=== PATIENT | female | born 1950 | race African-American/Black ===

== ENCOUNTER 2017-03-24 23:47 | Emergency (ER) | payer OTHER ==
[2017-03-25 00:33] LABS: #Basophils 0.1 thou/uL (0.0-0.2); #Eosinphils 0.6 thou/uL (0.0-0.7); #Lymphocytes 4.7 thou/uL (1.20-3.40); #Monocytes 0.9 thou/uL (0.11-0.59); #Neutrophils 4.1 thou/uL (1.40-6.50); %Basophils 0.9 % (0.0-1.0); %Eosinophils 5.5 % (0.0-10.0); %Lymphocytes 45.4 % (21.0-51.0); %Monocytes 8.6 % (0.0-10.0); Hematocrit 32.5 % (36.0-47.0); Mean Platelet Volume 7.4 fL (7.4-10.4); Red Blood Cell (RBC) Count 3.11 mill/uL (4.20-5.40); White Blood Cell (WBC) Count 10.4 thou/uL (4.8-10.8)
[2017-03-25] MEDS ORDERED: Magnesium Sulfate 2 GM/100 ML BAG ONE (00:53)
[2017-03-25] MEDS ORDERED: Acetaminophen 325 MG TAB ONE (00:53)
[2017-03-25 00:54] LABS: ALT (SGPT) 19 U/L (8-55); AST (SGOT) 18 U/L (5-34); Alkaline Phosphatase 68 U/L (40-150); Anion Gap 10 mmol/L (10-20); BUN (Urea Nitrogen) 29 mg/dL (9.8-20.1); Bilirubin, Total 0.3 mg/dL (0.2-1.2); CK (CPK) 260 U/L (29-168); Calc. Creatinine Clearance 0 mL/min (70-130); Calcium 9.5 mg/dL (7.8-10.44); Carbon Dioxide 24 mmol/L (23-31); Chloride 109 mmol/L (98-107); Estimated GFR-MDRD 60; Globulin 3.6 g/dL (2.4-3.5); Protein, Total 7.3 g/dL (6.0-8.3)
[2017-03-25 00:57] LABS: Troponin I Less than 0.010 ng/mL (< 0.028)
--- NOTE | 2017-03-25 08:32 | RAD ---
TWO VIEWS OF THE CHEST: COMPARISON: 08/04/16. HISTORY: Shortness of breath for a few days with low-grade fever. FINDINGS: Two views of the chest show normal sized cardiomediastinal silhouette. There is no evidence of conso lidation, mass, or pleural effusion. The bones are unremarkable. IMPRESSION: No evidence of acute cardiopulmonary disease. POS: [facility]
== END 2017-03-25 02:50 | disposition home or self-care (01) ==
LOC: ERS 23:47
DX: J45.901 Unspecified asthma with (acute) exacerbation (principal); F41.9 Anxiety disorder, unspecified; I25.10 Atherosclerotic heart disease of native coronary artery without angina pectoris; E11.9 Type 2 diabetes mellitus without complications; I10 Essential (primary) hypertension; F32.9 Major depressive disorder, single episode, unspecified; Z79.4 Long term (current) use of insulin; Z79.899 Other long term (current) drug therapy
CPT/HCPCS: 36415; 36416; 71020; 80053; 82550; 82553; 84484; 85025; 93005; 96365; J3475

== ENCOUNTER 2017-05-01 13:27 | Emergency (ER) | payer MEDICARE, OTHER ==
--- NOTE | 2017-05-01 14:48 | RAD ---
EXAM: ONE VIEW CHEST HISTORY: Shortness of breath. Epigastric pain. COMPARISON: 08/04/2016, 03/25/2017. FINDINGS: Portable upright chest demonstrates an enlarged cardiac silhouette, due to technique. Pulmonary vess els and hilum are normal. Costophrenic angles are clear. Persistent elevation of the right hemidiap hragm. No mass or consolidation. No pneumothorax or osseous abnormalities. IMPRESSION: No acute cardiopulmonary process. POS: [facility]
[2017-05-01 15:13] LABS: #Eosinphils 0.6 thou/uL (0.0-0.7); #Lymphocytes 2.8 thou/uL (1.20-3.40); #Monocytes 0.8 thou/uL (0.11-0.59); #Neutrophils 4.1 thou/uL (1.40-6.50); %Basophils 0.2 % (0.0-1.0); %Lymphocytes 33.3 % (21.0-51.0); %Monocytes 9.6 % (0.0-10.0); Hematocrit 35.1 % (36.0-47.0); Mean Platelet Volume 7.4 fL (7.4-10.4); Red Blood Cell (RBC) Count 3.37 mill/uL (4.20-5.40); White Blood Cell (WBC) Count 8.3 thou/uL (4.8-10.8)
[2017-05-01 15:37] LABS: ALT (SGPT) 17 U/L (8-55); AST (SGOT) 19 U/L (5-34); Alkaline Phosphatase 72 U/L (40-150); Anion Gap 13 mmol/L (10-20); BUN (Urea Nitrogen) 32 mg/dL (9.8-20.1); Bilirubin, Total 0.3 mg/dL (0.2-1.2); Calc. Creatinine Clearance 0 mL/min (70-130); Calcium 9.8 mg/dL (7.8-10.44); Carbon Dioxide 24 mmol/L (23-31); Chloride 105 mmol/L (98-107); Estimated GFR-MDRD 64; Globulin 3.8 g/dL (2.4-3.5); Protein, Total 7.7 g/dL (6.0-8.3)
[2017-05-01 15:41] LABS: Troponin I Less than 0.010 ng/mL (< 0.028)
[2017-05-01] MEDS ORDERED: methylPREDNISolone Sod Succ/PF 125 MG/2 ML VIAL ONE (16:08)
[2017-05-01] MEDS ORDERED: ISOVUE-370 76%-LOCM 1 ML ONE (17:08)
--- NOTE | 2017-05-01 18:23 | CT ---
CT PULMONARY ANGIOGRAM WITH IV CONTRAST AND 3D MIP RECONSTRUCTIONS: Date: 05/01/17 PROVIDED CLINICAL HISTORY: Shortness of breath. FINDINGS: Comparison with 07/27/14. There is no evidence for central or segmental pulmonary embolus. The heart, pericardium, and great ve ssels demonstrate an unremarkable CT appearance, with the exception of vascular calcification includi ng coronary calcium. The lungs are free of significant opacity. No pleural fluid or pneumothorax is apparent. No evidence for thoracic lymph node enlargement. The visualized portions of the upper abdomen demonstrate no acute abnormality. The osseous structures demonstrate no concerning osteoblastic or osteolytic lesions. IMPRESSION: 1. No evidence for central or segmental pulmonary embolus. 2. Coronary artery calcium. POS: [facility]
--- NOTE | 2017-05-27 20:53 | EKG ---
Test Reason : Blood Pressure : / mmHG Vent. Rate : 080 BPM Atrial Rate : 080 BPM P-R Int : 140 ms QRS Dur : 080 ms QT Int : 390 ms P-R-T Axes : 081 059 071 degrees QTc Int : 449 ms Normal sinus rhythm Normal ECG Confirmed by WILLIAM GURROLA, ALINA ([id number]), story editor PANFILO LUDWIG ([id number]) on 05/27/2017 8:52:25 PM Referred By: Confirmed By:ALINA THOMAS MD
== END 2017-05-01 18:38 | disposition home or self-care (01) ==
LOC: ERS 13:27
DX: J45.901 Unspecified asthma with (acute) exacerbation (principal); I25.10 Atherosclerotic heart disease of native coronary artery without angina pectoris; E11.9 Type 2 diabetes mellitus without complications; I11.0 Hypertensive heart disease with heart failure; I50.9 Heart failure, unspecified; F32.9 Major depressive disorder, single episode, unspecified; Z79.899 Other long term (current) drug therapy; Z79.84 Long term (current) use of oral hypoglycemic drugs
CPT/HCPCS: 36415; 36416; 71010; 71275; 80053; 82553; 84484; 85025; 85379; 93005; 94640; 96374; J2930; J7620

== ENCOUNTER 2017-05-21 14:17 | Emergency (ER) | payer MEDICARE, MEDICAID ==
--- NOTE | 2017-05-21 16:37 | RAD ---
CHEST ONE VIEW: History: Respiratory symptoms, cough. Comparison: 05-01-17 FINDINGS: Lungs are clear. No pneumothorax or effusion. Cardiac silhouette and mediastinal contours are normal. IMPRESSION: No acute thoracic abnormality. POS: [facility]
[2017-05-21] MEDS ORDERED: Albuterol Sulfate 2.5 mg/3 ml Neb ONE (16:42)
[2017-05-21] MEDS ORDERED: Lidocaine Viscous Sol 2% 15 ml UD Cup ONE (17:16)
[2017-05-21] MEDS ORDERED: Mag-Al 1200 mg/1200 mg/30 ML UDCUP ONE (17:16)
== END 2017-05-21 17:35 | disposition home or self-care (01) ==
LOC: ERS 14:17
DX: J45.901 Unspecified asthma with (acute) exacerbation (principal); E11.9 Type 2 diabetes mellitus without complications; I10 Essential (primary) hypertension; F32.9 Major depressive disorder, single episode, unspecified; F41.9 Anxiety disorder, unspecified; I25.10 Atherosclerotic heart disease of native coronary artery without angina pectoris; Z79.4 Long term (current) use of insulin; Z79.899 Other long term (current) drug therapy
CPT/HCPCS: 71045; 87081; 87430; 94640; J7611; J7620

== ENCOUNTER 2018-08-06 01:49 | Inpatient (IN) | payer MEDICARE, MEDICAID ==
[2018-08-06 02:28] LABS: #Basophils 0.1 thou/uL (0.0-0.2); #Eosinphils 0.4 thou/uL (0.0-0.7); #Lymphocytes 5.2 thou/uL (1.20-3.40); #Monocytes 1.5 thou/uL (0.11-0.59); #Neutrophils 5.3 thou/uL (1.40-6.50); %Basophils 0.9 % (0.0-1.0); %Eosinophils 2.9 % (0.0-10.0); %Lymphocytes 41.8 % (21.0-51.0); %Monocytes 12.2 % (0.0-10.0); %Neutrophils 42.3 % (42.0-75.0); Hemoglobin 10.7 g/dL (12.0-16.0); Mean Corpuscular HGB CONC 31.2 g/dL (32.0-36.0); Mean Corpuscular Hemoglobin 32.5 pg (27.0-31.0); Mean Platelet Volume 7.7 fL (7.4-10.4); Platelet Count 261 thou/uL (130-400); RBC Distribution Width 11.3 % (11.5-14.5); Red Blood Cell (RBC) Count 3.28 mill/uL (4.20-5.40); White Blood Cell (WBC) Count 12.5 thou/uL (4.8-10.8)
[2018-08-06 02:49] LABS: ALT (SGPT) 17 U/L (8-55); AST (SGOT) 19 U/L (5-34); Albumin 3.9 g/dL (3.4-4.8); Alkaline Phosphatase 72 U/L (40-150); Anion Gap 15 mmol/L (10-20); BUN (Urea Nitrogen) 18 mg/dL (9.8-20.1); Bilirubin, Total 0.3 mg/dL (0.2-1.2); Calc. Creatinine Clearance 0 mL/min (70-130); Calcium 9.3 mg/dL (7.8-10.44); Carbon Dioxide 23 mmol/L (23-31); Chloride 104 mmol/L (98-107); Estimated GFR-MDRD 52; Globulin 3.9 g/dL (2.4-3.5); Glucose 197 mg/dL (80-115); Protein, Total 7.8 g/dL (6.0-8.3); Sodium 137 mmol/L (136-145)
[2018-08-06] MEDS ORDERED: Magnesium 2 GM/50 ML BAG (IN WATER) ONE (03:08)
[2018-08-06] MEDS ORDERED: Albuterol Sulfate 2.5 mg/3 ml Neb ONE (03:10)
[2018-08-06 06:14] LABS: Troponin I Less than 0.010 ng/mL (< 0.028)
[2018-08-06] MEDS ORDERED: Acetaminophen 500 MG TAB ONE (06:46)
--- NOTE | 2018-08-06 08:12 | RAD ---
SINGLE VIEW CHEST: Date: 08/06/18 COMPARISON: 05/21/17. HISTORY: Shortness of breath. FINDINGS: Single view of the chest shows a normal sized cardiomediastinal silhouette. There is no evidence of c onsolidation, mass, or pleural effusion. The bones are unremarkable. IMPRESSION: No evidence of acute cardiopulmonary disease. POS: [facility]
--- NOTE | 2018-08-06 08:45 | CT ---
PRELIMINARY REPORT/[facility]/EMERGENCY AFTER HOURS PROCEDURE: EXAM: CT Angiography Chest With Contrast EXAM DATE/TIME: 08/06/2018 3:18 AM CLINICAL HISTORY: 67 years old, female; Pain; Chest pain; Prior surgery; Patient HX: Er 7; Progressive shortness of sharyn ath x2 days. Strong HX of asthma, states this feels different. Right sided pleuritic chest pain. Surg ical HX of heart cath x2 TECHNIQUE: Imaging protocol: Axial computed tomographic angiography images of the chest with intravenous contras t using CT angiography protocol. 3D rendering: MIP reconstructed images were created and reviewed. COMPARISON: No relevant prior studies available. FINDINGS: Pulmonary arteries: Normal. No pulmonary emboli. Aorta: Normal. No aortic aneurysm. No aortic dissection. Thyroid: Partially visualized right thyroid lobe nodule measuring at least 2 cm. 1 cm nodule inferior pole of the left thyroid. Lungs: Mild right lower lobe atelectasis. Pleural space: Normal. No pneumothorax. No pleural effusion. Heart: The heart is within normal size-limits. No abnormal pericardial effusion. Mediastinum: No mediastinal mass. Gallbladder and bile ducts: Cholecystectomy clips. Lymph nodes: Unremarkable. No enlarged lymph nodes. Bones/joints: Unremarkable. No acute fracture. Soft tissues: Unremarkable. IMPRESSION: 1. No evidence of a pulmonary embolism or pneumonia. Mild right lower lobe atelectasis. 2. Nonspecific bilateral thyroid gland nodules. Defer to on-site Radiologist for follow-up recommenda tions. Thank you for allowing us to participate in the care of your patient. Dictated and Authenticated by: Marianne Cole MD 08/06/2018 3:40 AM Central Time ([place] & [place]) FINAL REPORT EMERGENT AFTER HOURS STUDY CT ANGIOGRAM CHEST WITH 3D RENDERIN08/06/2018 3:21 a.m. FINDINGS: Bilateral thyroid nodules, up to 2 cm, on the right side. No significant pleural effusion or pericar dial effusion. Minimal parenchymal changes in the right lower lobe, probably some atelectasis. No C T evidence for acute pulmonary embolism. Agree with [facility]. POS: [facility]
[2018-08-06] MEDS ORDERED: metFORMIN 500 MG TAB PO SCH (12:00)
[2018-08-06] MEDS ORDERED: HumuLIN 70/30 (300 UNITS/3 ML VIAL) SC SCH (12:00)
[2018-08-06] MEDS ORDERED: Citalopram 20 MG TAB PO SCH (12:00)
[2018-08-06] MEDS ORDERED: Carvedilol 6.25 MG TAB PO SCH (12:00)
[2018-08-06] MEDS ORDERED: Lisinopril 10 MG TAB PO SCH (12:00)
[2018-08-06] MEDS ORDERED: Glimepiride 4 MG TAB PO SCH (12:00)
[2018-08-06] MEDS ORDERED: Spironolactone 25 MG TAB PO SCH (12:00)
[2018-08-06] MEDS ORDERED: Iopamidol 370 76% 100 ML VIAL ONE (17:08)
[2018-08-06 18:08] VITALS: BMI 44.6
[2018-08-06] MEDS ORDERED: Dextrose 5% in Water 1,000 ML IV PRN (18:45)
[2018-08-06] MEDS ORDERED: Dextrose 50% Abboject 50 ML SYRINGE IVP PRN (18:45)
[2018-08-06] MEDS: HumaLOG 300 UNITS/3 ML VIAL SC PRN (19:41)
[2018-08-06] MEDS: Atorvastatin Calcium 40 MG TAB PO SCH (20:33)
[2018-08-06] MEDS: ALPRAZolam 0.5 MG TAB PO SCH (20:33)
[2018-08-06] MEDS: Guaifenesin DM 100-10/5 ML UDCUP PO PRN (20:33)
[2018-08-06] MEDS: Carvedilol 6.25 MG TAB PO SCH (20:35)
[2018-08-06] MEDS: guaiFENesin ER 600 MG TAB PO SCH (20:43)
[2018-08-06] MEDS: Acetaminophen 325 MG TAB PO PRN (20:47)
[2018-08-07] MEDS: methylPREDNISolone Sod Succ 40 MG VIAL IVP SCH ×5 (00:30→23:13)
--- NOTE | 2018-08-07 00:37 | HP ---
CHIEF COMPLAINT: Shortness of breath, cough. HISTORY OF PRESENT ILLNESS: Ms. Bowie is a 67-year-old female with past medical history of bronchial asthma, hypertension, diabetes mellitus, has been having cough and shortness of breath for the last few days. It got worse in the last 2 days. The patient states cough is productive with whitish sputum. Shortness of breath got worse in the last 2 days to the point she could not breathe. She has been using her inhalers where she does not have medicine for her nebulizer machine. She felt that she was wheezing also. She did not have any chest pain or any fever. No nausea or vomiting. No headache. The patient is here in the hospital because of worsening of shortness of breath and wheezing. In the ER, the patient was evaluated, found to have chest wheezing bilaterally. She has history of bronchial asthma, acute exacerbation. The patient received Solu-Medrol and DuoNeb and magnesium sulfate. The patient still has shortness of breath, but better than before. PAST MEDICAL HISTORY: 1. Bronchial asthma. 2. Hypertension. 3. Diabetes mellitus. 4. Hyperlipidemia. 5. Chronic back pain. 6. History of cardiomyopathy. PAST SURGICAL HISTORY: Nothing significant. CURRENT MEDICATIONS: The patient is on 1. Coreg 6.25 b.i.d. 2. Celexa 20 mg daily. 3. Glimepiride 4 mg daily. 4. Insulin 70/30, 60 units in the morning, 40 units in the evening. 5. Lisinopril 10 mg daily. 6. Metformin 1000 b.i.d. 7. Simvastatin 80 mg daily. 8. Spironolactone 25 mg daily. 9. Xanax 0.25 mg at bedtime. ALLERGIES: SHELLFISH AND ASPIRIN. FAMILY HISTORY: Nothing contributory. SOCIAL HISTORY: The patient lives with family. No history of smoking. No history of alcohol intake. REVIEW OF SYSTEMS: CARDIOVASCULAR: Has shortness of breath. No chest pain. RESPIRATORY: No fever, but has cough, productive with white sputum. GASTROINTESTINAL: No nausea or vomiting. No abdominal pain. CENTRAL NERVOUS SYSTEMS: No headache. No dizziness. PHYSICAL EXAMINATION: GENERAL: The patient is alert, awake, and oriented x3. VITAL SIGNS: Temperature 98, pulse 97, respirations 20, blood pressure 150/70. HEENT: Head is normocephalic, atraumatic. Pupils are equal and reacting to light. Nasopharynx is pale and dry. NECK: Supple. No JVD. LUNGS: Breath sounds diminished bilaterally. Percussion to dull bilaterally. Expiratory wheeze present. No rales. HEART: S1 and S2. Regular. ABDOMEN: Soft. No distention. No tenderness. Normal bowel sounds. RECTAL: Deferred. CENTRAL NERVOUS SYSTEM: No focal deficits. LABORATORY DATA: CBC shows WBC 12, hemoglobin 10, hematocrit 34, platelets 261. Metabolic panel; sodium 137, potassium 5, chloride 104, CO2 23, BUN 18, creatinine 1.2, glucose 197. D-dimer 3.5. CT angio chest, negative, showed no new evidence of pulmonary embolism. X-ray negative. EKG was not done. ASSESSMENT: 1. Bronchial asthma with acute exacerbation. 2. Insulin-dependent diabetes mellitus, uncontrolled. 3. Hypertension, uncontrolled. 4. Chronic back pain. 5. Hyperlipidemia. PLAN: 1. Vital signs q.4 hours. 2. Activities as tolerated. 3. Allergies, shellfish and aspirin. 4. Hep-Lock. 5. Solu-Medrol 20 IVP q.6 hours. 6. DuoNeb 1 unit q.i.d. 7. Mucinex 600 mg b.i.d. 8. Accu-Chek before meals and at bedtime with sliding scale, aggressive, with regular insulin. 9. Continue her home medications on Tylenol p.r.n., Robitussin p.r.n. 10. We will get thyroid function tests and thyroid ultrasound in view of the nodules seen on the CT scan. Job ID: [id number]
[2018-08-07] MEDS: Acetaminophen 325 MG TAB PO PRN ×3 (03:29→20:30)
[2018-08-07] MEDS: HumaLOG 300 UNITS/3 ML VIAL SC PRN ×4 (06:02→20:31)
[2018-08-07] MEDS: Mag-Al 1200 mg/1200 mg/30 ML UDCUP PO PRN ×2 (06:36→11:47)
[2018-08-07 08:19] LABS: Free T4 (Free Thyroxine) 0.81 ng/dL (0.70-1.48); Thyroid Stimulating Hormone 0.1498 uIU/mL (0.35-4.94)
[2018-08-07] MEDS: Carvedilol 6.25 MG TAB PO SCH ×2 (08:53→20:26)
[2018-08-07] MEDS: Spironolactone 25 MG TAB PO SCH (08:53)
[2018-08-07] MEDS: Lisinopril 10 MG TAB PO SCH (08:54)
[2018-08-07] MEDS: metFORMIN 500 MG TAB PO SCH (08:54)
[2018-08-07] MEDS: Citalopram 20 MG TAB PO SCH (08:54)
[2018-08-07] MEDS: guaiFENesin ER 600 MG TAB PO SCH ×2 (08:54→20:26)
[2018-08-07] MEDS: Glimepiride 4 MG TAB PO SCH (08:55)
[2018-08-07] MEDS: HumuLIN 70/30 (300 UNITS/3 ML VIAL) SC SCH ×2 (08:56→18:15)
--- NOTE | 2018-08-07 09:23 | ULT ---
US Thyroid STANDARD: 08/07/2018 12:01 AM CLINICAL INDICATION: Thyroid nodule. COMPARISON: None. FINDINGS: Right and left thyroid lobes are normal in size and echotexture. The right thyroid lobe measures 4.8 cm and the left thyroid lobe measures 4.5 cm. There is a 3.4 cm predominantly cystic septated lesion in the right thyroid lobe without suspicious m icrocalcifications and is well-circumscribed and wider than tall. There is a mixed solid/cystic nodule in the left thyroid lobe measuring 1.2 cm in greatest dimension. This is well-circumscribed without suspicious microcalcifications. There is a mixed solid/cystic lesion in the left thyroid lobe measuring 1.3 cm in greatest dimension. This is well-circumscribed without suspicious calcifications. No cervical lymphadenopathy is noted. IMPRESSION: Multinodular thyroid. TIRADS category 2.
[2018-08-07] MEDS: ALPRAZolam 0.5 MG TAB PO SCH (20:26)
[2018-08-07] MEDS: Atorvastatin Calcium 40 MG TAB PO SCH (20:26)
[2018-08-07] MEDS: Guaifenesin DM 100-10/5 ML UDCUP PO PRN (20:30)
[2018-08-08] MEDS: Guaifenesin DM 100-10/5 ML UDCUP PO PRN ×4 (03:29→20:20)
[2018-08-08] MEDS: Mag-Al 1200 mg/1200 mg/30 ML UDCUP PO PRN ×2 (03:29→11:15)
[2018-08-08] MEDS: methylPREDNISolone Sod Succ 40 MG VIAL IVP SCH ×3 (05:14→17:21)
[2018-08-08] MEDS: HumaLOG 300 UNITS/3 ML VIAL SC PRN ×3 (05:15→20:25)
[2018-08-08] MEDS: Carvedilol 6.25 MG TAB PO SCH ×2 (08:47→20:20)
[2018-08-08] MEDS: Citalopram 20 MG TAB PO SCH (08:47)
[2018-08-08] MEDS: Lisinopril 10 MG TAB PO SCH (08:47)
[2018-08-08] MEDS: guaiFENesin ER 600 MG TAB PO SCH ×2 (08:47→20:20)
[2018-08-08] MEDS: metFORMIN 500 MG TAB PO SCH (08:47)
[2018-08-08] MEDS: Spironolactone 25 MG TAB PO SCH (08:47)
[2018-08-08] MEDS: Glimepiride 4 MG TAB PO SCH (08:48)
[2018-08-08] MEDS: HumuLIN 70/30 (300 UNITS/3 ML VIAL) SC SCH ×2 (08:48→17:22)
[2018-08-08] MEDS: Acetaminophen 325 MG TAB PO PRN (15:58)
[2018-08-08] MEDS: Atorvastatin Calcium 40 MG TAB PO SCH (20:20)
[2018-08-08] MEDS: ALPRAZolam 0.5 MG TAB PO SCH (20:20)
[2018-08-09] MEDS: methylPREDNISolone Sod Succ 40 MG VIAL IVP SCH ×4 (00:06→17:17)
[2018-08-09] MEDS: Acetaminophen 325 MG TAB PO PRN (00:06)
[2018-08-09] MEDS: Guaifenesin DM 100-10/5 ML UDCUP PO PRN ×4 (00:06→20:25)
[2018-08-09] MEDS: HumaLOG 300 UNITS/3 ML VIAL SC PRN ×2 (05:25→20:28)
[2018-08-09] MEDS: metFORMIN 500 MG TAB PO SCH (08:49)
[2018-08-09] MEDS: Lisinopril 10 MG TAB PO SCH (08:49)
[2018-08-09] MEDS: guaiFENesin ER 600 MG TAB PO SCH ×2 (08:50→20:25)
[2018-08-09] MEDS: Citalopram 20 MG TAB PO SCH (08:50)
[2018-08-09] MEDS: Spironolactone 25 MG TAB PO SCH (08:50)
[2018-08-09] MEDS: Glimepiride 4 MG TAB PO SCH (08:50)
[2018-08-09] MEDS: Carvedilol 6.25 MG TAB PO SCH ×2 (08:50→20:25)
[2018-08-09] MEDS: HumuLIN 70/30 (300 UNITS/3 ML VIAL) SC SCH ×2 (08:53→17:17)
[2018-08-09] MEDS: Mag-Al 1200 mg/1200 mg/30 ML UDCUP PO PRN ×2 (09:00→20:28)
[2018-08-09] MEDS: ALPRAZolam 0.5 MG TAB PO SCH (20:25)
[2018-08-09] MEDS: Atorvastatin Calcium 40 MG TAB PO SCH (20:25)
[2018-08-09] MEDS: Amoxicillin/Potassium Clav 875 MG TAB PO SCH (20:25)
[2018-08-10] MEDS: Guaifenesin DM 100-10/5 ML UDCUP PO PRN ×3 (00:29→20:34)
[2018-08-10] MEDS: methylPREDNISolone Sod Succ 40 MG VIAL IVP SCH ×4 (00:29→16:57)
[2018-08-10] MEDS: HumaLOG 300 UNITS/3 ML VIAL SC PRN ×2 (05:27→20:38)
[2018-08-10] MEDS: Acetaminophen 325 MG TAB PO PRN (05:30)
[2018-08-10] MEDS: Amoxicillin/Potassium Clav 875 MG TAB PO SCH ×2 (09:05→20:32)
[2018-08-10] MEDS: Citalopram 20 MG TAB PO SCH (09:05)
[2018-08-10] MEDS: Lisinopril 10 MG TAB PO SCH (09:05)
[2018-08-10] MEDS: guaiFENesin ER 600 MG TAB PO SCH ×2 (09:06→20:32)
[2018-08-10] MEDS: metFORMIN 500 MG TAB PO SCH (09:06)
[2018-08-10] MEDS: Carvedilol 6.25 MG TAB PO SCH ×2 (09:06→20:32)
[2018-08-10] MEDS: Glimepiride 4 MG TAB PO SCH (09:06)
[2018-08-10] MEDS: Spironolactone 25 MG TAB PO SCH (09:06)
[2018-08-10] MEDS ORDERED: PROVENTIL INHALER 6.7 G (200 INHALATIONS) INH PRN (09:12)
[2018-08-10] MEDS: Mag-Al 1200 mg/1200 mg/30 ML UDCUP PO PRN (10:51)
[2018-08-10] MEDS: HumuLIN 70/30 (300 UNITS/3 ML VIAL) SC SCH ×2 (10:52→16:56)
[2018-08-10] MEDS: Mometasone/Formoterol 120 PUFF INHALER INH SCH (18:54)
[2018-08-10] MEDS: Atorvastatin Calcium 40 MG TAB PO SCH (20:32)
[2018-08-10] MEDS: ALPRAZolam 0.5 MG TAB PO SCH (20:32)
[2018-08-11] MEDS: methylPREDNISolone Sod Succ 40 MG VIAL IVP SCH ×3 (00:26→11:21)
[2018-08-11] MEDS: HumaLOG 300 UNITS/3 ML VIAL SC PRN (05:52)
[2018-08-11] MEDS: Mometasone/Formoterol 120 PUFF INHALER INH SCH (07:00)
[2018-08-11 07:27] VITALS: TEMP 98.1
[2018-08-11] MEDS: HumuLIN 70/30 (300 UNITS/3 ML VIAL) SC SCH (07:54)
[2018-08-11] MEDS: Amoxicillin/Potassium Clav 875 MG TAB PO SCH (07:55)
[2018-08-11] MEDS: Citalopram 20 MG TAB PO SCH (07:55)
[2018-08-11] MEDS: metFORMIN 500 MG TAB PO SCH (07:55)
[2018-08-11] MEDS: Glimepiride 4 MG TAB PO SCH (07:55)
[2018-08-11] MEDS: Lisinopril 10 MG TAB PO SCH (07:55)
[2018-08-11] MEDS: Spironolactone 25 MG TAB PO SCH (07:55)
[2018-08-11 07:56] VITALS: BP 150/78
[2018-08-11] MEDS: guaiFENesin ER 600 MG TAB PO SCH (07:56)
[2018-08-11] MEDS: Carvedilol 6.25 MG TAB PO SCH (07:56)
[2018-08-11] MEDS: Mag-Al 1200 mg/1200 mg/30 ML UDCUP PO PRN (11:24)
[2018-08-11] MEDS: Guaifenesin DM 100-10/5 ML UDCUP PO PRN (11:24)
== END 2018-08-11 14:56 | disposition home or self-care (01) | DRG 203 ==
LOC: ERS 01:49 → ERHOLD 05:00 → T4-B 15:07
PROVIDERS: ADMIT Internal Medicine; ATTEND Internal Medicine
DX: J45.901 Unspecified asthma with (acute) exacerbation (principal); E11.9 Type 2 diabetes mellitus without complications; G89.29 Other chronic pain; M54.9 Dorsalgia, unspecified; E04.1 Nontoxic single thyroid nodule; I25.10 Atherosclerotic heart disease of native coronary artery without angina pectoris; E78.00 Pure hypercholesterolemia, unspecified; F41.9 Anxiety disorder, unspecified; F32.9 Major depressive disorder, single episode, unspecified; R09.02 Hypoxemia; I11.0 Hypertensive heart disease with heart failure; I50.9 Heart failure, unspecified; Z79.4 Long term (current) use of insulin; Z79.84 Long term (current) use of oral hypoglycemic drugs; Z88.8 Allergy status to other drugs, medicaments and biological substances; Z79.899 Other long term (current) drug therapy; Z91.013 Allergy to seafood; Z79.51 Long term (current) use of inhaled steroids
CPT/HCPCS: 36415; 36416; 71045; 71275; 76536; 80053; 83880; 84439; 84443; 84484; 85025; 85379; 93306; 94640; 94760; J1815; J2920; J3475; J7611; J7620; Q9967

== ENCOUNTER 2019-03-10 22:23 | Observation (INO) | payer MEDICARE, MEDICAID ==
[2019-03-10 22:56] LABS: #Basophils 0.1 thou/uL (0.0-0.2); #Eosinphils 0.5 thou/uL (0.0-0.7); #Lymphocytes 4.1 thou/uL (1.20-3.40); #Monocytes 0.9 thou/uL (0.11-0.59); #Neutrophils 3.9 thou/uL (1.40-6.50); %Basophils 0.8 % (0.0-1.0); %Eosinophils 5.7 % (0.0-10.0); %Lymphocytes 42.9 % (21.0-51.0); %Monocytes 9.5 % (0.0-10.0); %Neutrophils 41.1 % (42.0-75.0); Hemoglobin 10.9 g/dL (12.0-16.0); Mean Corpuscular HGB CONC 32.6 g/dL (32.0-36.0); Mean Corpuscular Hemoglobin 33.8 pg (27.0-31.0); Mean Platelet Volume 8.3 fL (7.4-10.4); Platelet Count 253 thou/uL (130-400); RBC Distribution Width 11.5 % (11.5-14.5); Red Blood Cell (RBC) Count 3.22 mill/uL (4.20-5.40); White Blood Cell (WBC) Count 9.5 thou/uL (4.8-10.8)
[2019-03-10 23:17] LABS: ALT (SGPT) 15 U/L (8-55); AST (SGOT) 16 U/L (5-34); Alkaline Phosphatase 75 U/L (40-110); Anion Gap 10 mmol/L (10-20); BUN (Urea Nitrogen) 26 mg/dL (9.8-20.1); Bilirubin, Total 0.2 mg/dL (0.2-1.2); CK (CPK) 183 U/L (29-168); Calc. Creatinine Clearance 0 mL/min (70-130); Calcium 9.5 mg/dL (7.8-10.44); Carbon Dioxide 24 mmol/L (23-31); Chloride 109 mmol/L (98-107); Estimated GFR-MDRD 59; Globulin 3.2 g/dL (2.4-3.5); Glucose 147 mg/dL (80-115); Potassium 6.2 mmol/L (3.5-5.1); Protein, Total 7.2 g/dL (6.0-8.3); Sodium 137 mmol/L (136-145)
[2019-03-10 23:40] LABS: CKMB 1.5 ng/mL (0-6.6)
[2019-03-11] MEDS ORDERED: Sodium Chloride 0.9% 1,000 ML IV SCH (00:45)
[2019-03-11] MEDS ORDERED: Ondansetron PF 4 MG/2 ML Vial IVP PRN (00:46)
[2019-03-11] MEDS ORDERED: Ondansetron ODT 4 MG TAB SL PRN (00:46)
[2019-03-11] MEDS ORDERED: Vancomycin HCl 750 MG in Sodium Chloride 0.9% 250 ML 250 ML IVPB SCH (01:00)
[2019-03-11 01:56] VITALS: BMI 45.6
[2019-03-11] MEDS: Sodium Chloride 0.9% 1,000 ML IV SCH ×2 (02:16→13:35)
[2019-03-11] MEDS: Acetaminophen 325 MG TAB PO PRN ×3 (02:17→21:58)
[2019-03-11 02:39] LABS: Troponin I Less than 0.010 ng/mL (< 0.028)
[2019-03-11 06:02] LABS: #Basophils 0.1 thou/uL (0.0-0.2); #Eosinphils 0.5 thou/uL (0.0-0.7); #Lymphocytes 3.2 thou/uL (1.20-3.40); #Monocytes 0.8 thou/uL (0.11-0.59); %Basophils 1.3 % (0.0-1.0); %Eosinophils 6.1 % (0.0-10.0); %Lymphocytes 42.3 % (21.0-51.0); %Neutrophils 40.2 % (42.0-75.0); Hemoglobin 9.8 g/dL (12.0-16.0); Mean Corpuscular HGB CONC 32.6 g/dL (32.0-36.0); Mean Corpuscular Hemoglobin 33.6 pg (27.0-31.0); Mean Platelet Volume 8.2 fL (7.4-10.4); Platelet Count 235 thou/uL (130-400); RBC Distribution Width 11.6 % (11.5-14.5); Red Blood Cell (RBC) Count 2.91 mill/uL (4.20-5.40); White Blood Cell (WBC) Count 7.5 thou/uL (4.8-10.8)
[2019-03-11 06:21] LABS: Anion Gap 12 mmol/L (10-20); BUN (Urea Nitrogen) 26 mg/dL (9.8-20.1); Calc. Creatinine Clearance 97 mL/min (70-130); Calcium 9.1 mg/dL (7.8-10.44); Carbon Dioxide 22 mmol/L (23-31); Chloride 111 mmol/L (98-107); Estimated GFR-MDRD 67; Glucose 163 mg/dL (80-115); Sodium 139 mmol/L (136-145)
[2019-03-11 06:24] LABS: Troponin I 0.017 ng/mL (< 0.028)
[2019-03-11] MEDS ORDERED: Aspirin 325 mg Enteric Coated Tablet PO SCH (08:00)
[2019-03-11] MEDS ORDERED: FLU VACC TS2019-20(65YR UP)/PF 180 MCG/0.5 ML SYRINGE IM ONE (09:00)
[2019-03-11] MEDS ORDERED: PROVENTIL INHALER 6.7 G (200 INHALATIONS) INH PRN (09:50)
[2019-03-11] MEDS ORDERED: Glimepiride 4 MG TAB PO SCH (11:00)
[2019-03-11] MEDS ORDERED: metFORMIN 500 MG TAB PO SCH (11:00)
[2019-03-11] MEDS ORDERED: Carvedilol 6.25 MG TAB PO SCH (11:00)
[2019-03-11] MEDS ORDERED: Citalopram 20 MG TAB PO SCH (11:00)
[2019-03-11] MEDS ORDERED: HumuLIN 70/30 (300 UNITS/3 ML VIAL) SC SCH ×2 (11:00→16:30)
[2019-03-11] MEDS ORDERED: ALPRAZolam 0.25 MG TAB PO SCH (11:00)
[2019-03-11] MEDS ORDERED: Dextrose 5% in Water 1,000 ML IV PRN (18:06)
[2019-03-11] MEDS ORDERED: Insulin Regular 300 UNITS/3 ML VIAL SC PRN (18:06)
[2019-03-11] MEDS ORDERED: Dextrose 50% Abboject 50 ML SYRINGE IVP PRN (18:06)
[2019-03-11] MEDS ORDERED: guaiFENesin/Dextromethorphan 10 ML UDCUP PO PRN (18:07)
[2019-03-11] MEDS ORDERED: Loratadine 10 MG TAB PO SCH (20:15)
[2019-03-11] MEDS ORDERED: ALPRAZolam 0.5 MG TAB PO SCH (21:00)
[2019-03-11] MEDS ORDERED: Atorvastatin Calcium 40 MG TAB PO SCH (21:00)
[2019-03-11] MEDS: Carvedilol 6.25 MG TAB PO SCH (21:57)
[2019-03-11] MEDS: Guaifenesin DM 100-10/5 ML UDCUP PO PRN (21:58)
--- NOTE | 2019-03-11 22:07 | HP ---
CHIEF COMPLAINT: Weakness, dizziness. HISTORY OF PRESENT ILLNESS: Ms. Bowie is a 68-year-old Afro-[place] female with past medical history of diabetes, hypertension, came because of weakness and dizziness. The patient states she also has some headache, congestion, cough. The patient states the symptoms just started a few days ago and did not have any chest pain, nausea, vomiting, or shortness of breath. The patient did not have any abdominal pain either. The patient decided to come to the hospital because of these symptoms. In the ER, the patient was evaluated and found to have acute kidney injury and hyperkalemia. She was started on IV fluids and admitted for further evaluation and management. PAST MEDICAL HISTORY: 1. Hypertension. 2. Diabetes mellitus. 3. Hyperlipidemia. 4. Chronic back pain. 5. History of cardiomyopathy. 6. Bronchial asthma. PAST SURGICAL HISTORY: Nothing significant. CURRENT MEDICATIONS: The patient is on, 1. Coreg 6.25 b.i.d. 2. Tylenol p.r.n. 3. Xanax 0.5 at bedtime and 0.25 in the morning. 4. Citalopram 20 mg daily. 5. Glimepiride 4 mg daily. 6. Humulin 70/30, 60 units in the morning, 40 units in the evening. 7. DuoNeb q.6h p.r.n. 8. Lisinopril 10 mg daily. 9. Metformin 1000 mg daily. 10. Simvastatin 80 mg at bedtime. 11. Spironolactone 25 mg daily. 12. Ventolin inhaler 2 puffs q.6h p.r.n. ALLERGIES: SHELLFISH AND ASPIRIN. FAMILY HISTORY: Nothing contributory. SOCIAL HISTORY: The patient lives with family. No history of smoking. No history of alcohol. REVIEW OF SYSTEMS: CARDIOVASCULAR: No chest pain. No shortness of breath. RESPIRATORY: No fever. Has dry cough. CENTRAL NERVOUS SYSTEM: Has headache and dizziness. GASTROINTESTINAL: No nausea or vomiting symptoms. PHYSICAL EXAMINATION: GENERAL: The patient is alert, awake, and oriented x3. VITAL SIGNS: Temperature 98, pulse 80, respirations 20, blood pressure 140/60. HEENT: Head is normocephalic and atraumatic. Pupils are equal and reactive. Nasopharynx is pale and dry. Hard and soft palate. No lesions. SKIN: Turgor decreased. NECK: Supple. No JVD. LUNGS: Bilateral air entry. No rales. No rhonchi. HEART: Regular. ABDOMEN: Soft. No distention. No tenderness. Normal bowel sounds present. RECTAL: Deferred. CENTRAL NERVOUS SYSTEM: No focal deficit. LABORATORY DATA: CBC shows WBC 9.5, hemoglobin 10, hematocrit 33, platelets 253. Metabolic panel; sodium 137, potassium 6.2, chloride 109, CO2 24, BUN 26, creatinine 1.1, glucose 147. Troponin I 0.031. EKG shows normal sinus rhythm, no acute ST-T changes seen. ASSESSMENT: 1. Generalized weakness. 2. Acute kidney injury. 3. Severe hyperkalemia. 4. Chronic anemia. 5. Insulin dependent diabetes mellitus. 6. Hypertension. 7. History of bronchial asthma. PLAN: 1. Vital signs q.4 hours. 2. Activity as tolerated. 3. Allergies, shellfish and aspirin. 4. IV fluids, normal saline 80 mL/h. 5. Diet, ADA. 6. Continue home medications. 7. Accu-Cheks before meals and at bedtime with sliding scale mild with regular insulin. 8. Kayexalate 1 dose 15 g. 9. BMP in the morning. 10. Tiana ayala Job ID: [id number]
[2019-03-12] MEDS: Sodium Chloride 0.9% 1,000 ML IV SCH (02:25)
[2019-03-12] MEDS: Guaifenesin DM 100-10/5 ML UDCUP PO PRN (02:25)
[2019-03-12 04:10] LABS: #Basophils 0.1 thou/uL (0.0-0.2); #Eosinphils 0.6 thou/uL (0.0-0.7); #Lymphocytes 2.5 thou/uL (1.20-3.40); #Monocytes 1.1 thou/uL (0.11-0.59); #Neutrophils 3.4 thou/uL (1.40-6.50); %Basophils 0.8 % (0.0-1.0); %Eosinophils 7.6 % (0.0-10.0); %Lymphocytes 32.8 % (21.0-51.0); %Monocytes 14.5 % (0.0-10.0); %Neutrophils 44.3 % (42.0-75.0); Hemoglobin 9.7 g/dL (12.0-16.0); Mean Corpuscular HGB CONC 32.5 g/dL (32.0-36.0); Mean Corpuscular Hemoglobin 33.7 pg (27.0-31.0); Mean Platelet Volume 8.3 fL (7.4-10.4); Platelet Count 220 thou/uL (130-400); RBC Distribution Width 11.5 % (11.5-14.5); Red Blood Cell (RBC) Count 2.87 mill/uL (4.20-5.40); White Blood Cell (WBC) Count 7.6 thou/uL (4.8-10.8)
[2019-03-12 04:27] LABS: Anion Gap 10 mmol/L (10-20); BUN (Urea Nitrogen) 21 mg/dL (9.8-20.1); Calc. Creatinine Clearance 101 mL/min (70-130); Calcium 8.6 mg/dL (7.8-10.44); Carbon Dioxide 23 mmol/L (23-31); Chloride 112 mmol/L (98-107); Estimated GFR-MDRD 69; Glucose 134 mg/dL (80-115); Potassium 4.9 mmol/L (3.5-5.1); Sodium 140 mmol/L (136-145)
[2019-03-12] MEDS ORDERED: HumuLIN 70/30 (300 UNITS/3 ML VIAL) SC SCH (07:30)
[2019-03-12] MEDS ORDERED: metFORMIN 500 MG TAB PO SCH (08:00)
[2019-03-12] MEDS ORDERED: Glimepiride 4 MG TAB PO SCH (08:00)
[2019-03-12] MEDS ORDERED: Spironolactone 25 MG TAB PO SCH (08:00)
[2019-03-12 08:50] VITALS: BP 154/70; TEMP 97.9
[2019-03-12] MEDS: Carvedilol 6.25 MG TAB PO SCH (08:50)
[2019-03-12] MEDS: Acetaminophen 325 MG TAB PO PRN (08:50)
[2019-03-12] MEDS ORDERED: Citalopram 20 MG TAB PO SCH (09:00)
[2019-03-12] MEDS ORDERED: Lisinopril 10 MG TAB PO SCH (09:00)
[2019-03-12] MEDS ORDERED: Loratadine 10 MG TAB PO SCH (09:00)
[2019-03-12] MEDS ORDERED: ALPRAZolam 0.25 MG TAB PO SCH (09:00)
--- NOTE | 2019-03-13 20:12 | DIS ---
DATE OF ADMISSION: 03/10/2019 DATE OF DISCHARGE: 03/12/2019 ADMITTING DIAGNOSES: 1. Generalized weakness. 2. Acute kidney injury. 3. Severe hyperkalemia. 4. Chronic anemia. 5. Insulin-dependent diabetes mellitus. 6. Hypertension. 7. History of bronchial asthma. FINAL DIAGNOSES: 1. Generalized weakness, improved. 2. Acute kidney injury, improved. 3. Severe hyperkalemia, corrected. 4. Chronic anemia. 5. Insulin-dependent diabetes mellitus. 6. Hypertension. 7. Bronchial asthma. BRIEF SUMMARY OF HOSPITAL COURSE: Ms. Bowie is a 68-year-old female admitted because of weakness. The patient has been feeling a bit dizzy as well and was found to have acute kidney injury with hyperkalemia. The patient's BUN was 26. The patient was given fluids and it came down to 21, creatinine also came down from 1.1 to 0.9. Her potassium was high on admission, it was 6.2, came down to 6 and then 4.9. The patient did not have any nausea or vomiting. No abdominal pain. Her weakness improved. She is tolerating diet very well. She is able to ambulate without any problems. In view of improvement, the patient was discharged. At the time of discharge, she was stable. Her vital signs stable. Lungs clear. Heart sounds regular. Abdomen is soft and nontender. Bowel sounds present. DISCHARGE MEDICATIONS: 1. Xanax 0.5 mg at bedtime. 2. Coreg 6.25 b.i.d. 3. Simvastatin 80 mg at bedtime. 4. Lisinopril 10 mg daily. 5. Metformin 1000 mg daily. 6. Spironolactone 25 mg daily. 7. Glimepiride 4 mg daily. 8. Celexa 20 mg daily. 9. DuoNeb q.i.d. p.r.n. 10. Insulin 70/30, 60 units in the morning and 40 units in the evening. 11. Ventolin inhaler 2 puffs q.i.d. p.r.n. 12. Tylenol p.r.n. 13. The patient also gets Xanax 0.25 in the morning. The patient will continue with ADA diet and come for followup in 2 weeks. Job ID: [id number]
== END 2019-03-12 12:01 | disposition home or self-care (01) ==
LOC: ERS 22:23 → 2SW 23:01 → ERS 03-11 00:37
PROVIDERS: ADMIT Internal Medicine; ATTEND Internal Medicine
DX: R53.1 Weakness (principal); N17.9 Acute kidney failure, unspecified; E87.5 Hyperkalemia; I10 Essential (primary) hypertension; E11.9 Type 2 diabetes mellitus without complications; D64.9 Anemia, unspecified; J45.909 Unspecified asthma, uncomplicated; Z79.4 Long term (current) use of insulin; Z79.899 Other long term (current) drug therapy; Z88.8 Allergy status to other drugs, medicaments and biological substances; Z91.018 Allergy to other foods; Z91.013 Allergy to seafood
CPT/HCPCS: 80048 ×2; 80053; 82550; 82553; 82962 ×2; 84484 ×3; 85025 ×3; 86850; 86900; 86901; 90662; 93005; 96360; 99285; G0008; 36415; 36416; 90471; 96361; G0378; J1815

== ENCOUNTER 2020-06-22 12:33 | Emergency (ER) | payer MEDICARE, MEDICAID ==
[2020-06-22 13:40] LABS: Bilirubin Negative (Negative); Blood, Urine 1+ (Negative); Clarity Clear (Clear); Glucose, Urine (Dipstick) Normal (Negative); Ketone, Urine Negative (Negative); Leukocyte Negative Leu/uL (Negative); Nitrite Negative (Negative); Protein, Urine (Dipstick) 300 mg/dL (Neg-Trace); RBC/HPF 0-3 HPF (0-3); Squamous Epithelial 0-3 HPF (0-3); Urobilinogen Normal mg/dL (Less than 2); WBC/HPF 0-3 HPF (0-3); pH, Urine 5.5 (5.0-9.0)
[2020-06-22 13:46] LABS: Bacteria/HPF 1+ HPF (None Seen)
[2020-06-22 13:49] LABS: #Basophils 0.1 thou/uL (0.0-0.2); #Eosinphils 0.5 thou/uL (0.0-0.7); #Lymphocytes 2.8 thou/uL (1.20-3.40); #Monocytes 0.8 thou/uL (0.11-0.59); %Basophils 0.8 % (0.0-1.0); %Eosinophils 5.8 % (0.0-10.0); %Lymphocytes 34.7 % (21.0-51.0); %Monocytes 9.5 % (0.0-10.0); %Neutrophils 49.4 % (42.0-75.0); Hemoglobin 10.2 g/dL (12.0-16.0); Mean Corpuscular HGB CONC 31.4 g/dL (32.0-36.0); Mean Corpuscular Hemoglobin 32.9 pg (27.0-31.0); Mean Platelet Volume 8.8 fL (7.4-10.4); Platelet Count 238 thou/uL (130-400); RBC Distribution Width 11.3 % (11.5-14.5); Red Blood Cell (RBC) Count 3.09 mill/uL (4.20-5.40)
--- NOTE | 2020-06-22 13:58 | RAD ---
EXAM: Single view of the chest HISTORY: Dizziness and weakness COMPARISON: 08/06/2018 FINDINGS: Single view of the chest shows an enlarged cardiomediastinal silhouette. There is no eviden ce of consolidation, mass, or pleural effusion. Degenerative changes are seen in the spine. IMPRESSION: Cardiomegaly
[2020-06-22 14:07] LABS: ALT (SGPT) 13 U/L (8-55); AST (SGOT) 15 U/L (5-34); Albumin 3.5 g/dL (3.4-4.8); Alkaline Phosphatase 68 U/L (40-110); Anion Gap 12 mmol/L (10-20); BUN (Urea Nitrogen) 36 mg/dL (9.8-20.1); Bilirubin, Total 0.2 mg/dL (0.2-1.2); Calc. Creatinine Clearance 0 mL/min (70-130); Calcium 9.2 mg/dL (7.8-10.44); Carbon Dioxide 22 mmol/L (23-31); Chloride 112 mmol/L (98-107); Globulin 3.8 g/dL (2.4-3.5); Glucose 82 mg/dL (80-115); Potassium 5.2 mmol/L (3.5-5.1); Protein, Total 7.3 g/dL (5.8-8.1); Sodium 141 mmol/L (136-145)
--- NOTE | 2020-06-22 14:26 | CT ---
CT HEAD WITHOUT CONTRAST: INDICATION: Mental status change. COMPARISON: 08/04/2016. FINDINGS: Mild cortical volume loss is again noted, stable. Ventricles have normal size and position. There is no evidence of intracranial mass, hemorrhage, infarct, or other acute process. Sinuses and mastoids are clear. IMPRESSION: No acute abnormality. POS: [facility]
[2020-06-22] MEDS ORDERED: Acetaminophen 500 MG TAB ONE ×2 (15:34→15:35)
== END 2020-06-22 16:12 | disposition home or self-care (01) ==
LOC: ERS 12:33
DX: I10 Essential (primary) hypertension (principal); R30.0 Dysuria; E11.9 Type 2 diabetes mellitus without complications; J45.909 Unspecified asthma, uncomplicated; Z79.899 Other long term (current) drug therapy; Z79.84 Long term (current) use of oral hypoglycemic drugs
CPT/HCPCS: 36415; 70450; 71045; 80053; 81003; 81015; 82140; 84443; 84484; 85025; 93005

== ENCOUNTER 2020-07-12 18:55 | Emergency (ER) | payer MEDICARE, MEDICAID ==
[2020-07-12 19:26] LABS: #Eosinphils 0.9 thou/uL (0.0-0.7); #Lymphocytes 2.3 thou/uL (1.20-3.40); #Monocytes 0.9 thou/uL (0.11-0.59); #Neutrophils 3.1 thou/uL (1.40-6.50); %Basophils 0.4 % (0.0-1.0); %Eosinophils 12.7 % (0.0-10.0); %Lymphocytes 31.6 % (21.0-51.0); %Monocytes 12.4 % (0.0-10.0); %Neutrophils 42.9 % (42.0-75.0); Hemoglobin 9.7 g/dL (12.0-16.0); Mean Corpuscular HGB CONC 32.7 g/dL (32.0-36.0); Mean Corpuscular Hemoglobin 33.9 pg (27.0-31.0); Mean Platelet Volume 8.6 fL (7.4-10.4); Platelet Count 225 thou/uL (130-400); RBC Distribution Width 11.2 % (11.5-14.5); Red Blood Cell (RBC) Count 2.87 mill/uL (4.20-5.40); White Blood Cell (WBC) Count 7.2 thou/uL (4.8-10.8)
--- NOTE | 2020-07-12 19:30 | RAD ---
Exam: Chest one view HISTORY:Emboli seen in Comparison: 06/22/2020 FINDINGS: Cardiac silhouette:Cardiomegaly Aorta: Unremarkable Pulmonary vessels: Normal Costophrenic angles: Clear LUNGS: No masses or consolidation. Stable elevation the right hemidiaphragm Pneumothorax: None Osseous abnormalities: None IMPRESSION: No acute cardiopulmonary process. Stable elevation the right hemidiaphragm. Correlate for diaphragmatic paralysis
[2020-07-12 19:50] LABS: ALT (SGPT) 15 U/L (8-55); AST (SGOT) 16 U/L (5-34); Albumin 3.2 g/dL (3.4-4.8); Alkaline Phosphatase 63 U/L (40-110); Anion Gap 9 mmol/L (10-20); BUN (Urea Nitrogen) 30 mg/dL (9.8-20.1); Bilirubin, Total Less than 0.2 mg/dL (0.2-1.2); Calc. Creatinine Clearance 0 mL/min (70-130); Calcium 8.7 mg/dL (7.8-10.44); Carbon Dioxide 28 mmol/L (23-31); Chloride 108 mmol/L (98-107); Globulin 3.8 g/dL (2.4-3.5); Glucose 186 mg/dL (80-115); Potassium 4.5 mmol/L (3.5-5.1); Sodium 140 mmol/L (136-145)
[2020-07-12 20:41] LABS: Bilirubin Negative (Negative); Blood, Urine 1+ (Negative); Clarity Turbid (Clear); Glucose, Urine (Dipstick) Normal (Negative); Ketone, Urine Negative (Negative); Leukocyte Negative Leu/uL (Negative); Nitrite Negative (Negative); Protein, Urine (Dipstick) 300 mg/dL (Neg-Trace); RBC/HPF 0-3 HPF (0-3); Specific Gravity, Urine 1.016 (1.002-1.036); Squamous Epithelial None Seen HPF (0-3); Urobilinogen Normal mg/dL (Less than 2)
--- NOTE | 2020-07-12 20:43 | ULT ---
Exam:Leftlower extremity venous ultrasound with Doppler HISTORY: Leftlower extremity swelling and pain COMPARISON: None TECHNIQUE: Grayscale, color flow, Doppler imaging and spectral wave muscle performed left lower extre mity venous system FINDINGS: There is compressibility, presence of flow and augmentation in the common femoral vein, femoral vein and popliteal vein. There is flow in the posterior tibial vein. There is flow in the greater saphenous vein and profunda femoral vein IMPRESSION: No thrombus in the left lower extremity deep venous system.
[2020-07-12 20:50] LABS: Bacteria/HPF 2+ HPF (None Seen)
[2020-07-12 20:51] LABS: WBC/HPF 0-3 HPF (0-3)
== END 2020-07-12 23:02 | disposition home or self-care (01) ==
LOC: ERS 18:55
DX: E11.65 Type 2 diabetes mellitus with hyperglycemia (principal); N39.0 Urinary tract infection, site not specified; S30.814A Abrasion of vagina and vulva, initial encounter; M79.662 Pain in left lower leg; J45.909 Unspecified asthma, uncomplicated; I10 Essential (primary) hypertension; Z79.84 Long term (current) use of oral hypoglycemic drugs; Z79.899 Other long term (current) drug therapy
CPT/HCPCS: 36415; 36416; 51701; 71045; 80053; 81003; 81015; 83880; 85025; 87086; 93005

== ENCOUNTER 2020-08-26 13:12 | Emergency (ER) | payer MEDICARE, MEDICAID ==
[~2020-08-26 13:12] MED LIST: Iopamidol-370 76% 500 ML 1 ML ONE
[2020-08-26 14:05] LABS: #Eosinphils 0.3 thou/uL (0.0-0.7); #Lymphocytes 2.6 thou/uL (1.20-3.40); #Monocytes 0.8 thou/uL (0.11-0.59); #Neutrophils 5.3 thou/uL (1.40-6.50); %Basophils 0.5 % (0.0-1.0); %Eosinophils 3.3 % (0.0-10.0); %Lymphocytes 28.2 % (21.0-51.0); %Neutrophils 58.9 % (42.0-75.0); Hemoglobin 10.1 g/dL (12.0-16.0); Mean Corpuscular Hemoglobin 33.3 pg (27.0-31.0); Mean Platelet Volume 9.4 fL (7.4-10.4); Platelet Count 213 thou/uL (130-400); RBC Distribution Width 11.3 % (11.5-14.5); Red Blood Cell (RBC) Count 3.03 mill/uL (4.20-5.40)
[2020-08-26 14:27] LABS: Bacteria/HPF None Seen HPF (None Seen); Bilirubin Negative (Negative); Blood, Urine 1+ (Negative); Clarity Clear (Clear); Glucose, Urine (Dipstick) Normal (Negative); Ketone, Urine Negative (Negative); Leukocyte Negative Leu/uL (Negative); Nitrite Negative (Negative); Protein, Urine (Dipstick) 300 mg/dL (Neg-Trace); RBC/HPF 0-3 HPF (0-3); Urobilinogen Normal mg/dL (Less than 2); WBC/HPF 0-3 HPF (0-3); pH, Urine 5.5 (5.0-9.0)
[2020-08-26 14:27] LABS: ALT (SGPT) 8 U/L (8-55); AST (SGOT) 15 U/L (5-34); Albumin 3.6 g/dL (3.4-4.8); Alkaline Phosphatase 72 U/L (40-110); Anion Gap 13 mmol/L (10-20); BUN (Urea Nitrogen) 39 mg/dL (9.8-20.1); Bilirubin, Total Less than 0.2 mg/dL (0.2-1.2); Calc. Creatinine Clearance 0 mL/min (70-130); Calcium 9.2 mg/dL (7.8-10.44); Carbon Dioxide 27 mmol/L (23-31); Chloride 111 mmol/L (98-107); Globulin 3.2 g/dL (2.4-3.5); Glucose 81 mg/dL (80-115); Potassium 4.5 mmol/L (3.5-5.1); Protein, Total 6.8 g/dL (5.8-8.1); Sodium 146 mmol/L (136-145)
[2020-08-26] MEDS ORDERED: Lidocaine Viscous Sol 2% 15 ml UD Cup ONE (17:11)
[2020-08-26] MEDS ORDERED: Milk Of Magnesia 30 ML UDCUP ONE (17:11)
[2020-08-26] MEDS ORDERED: Mag-Al 1200 mg/1200 mg/30 ML UDCUP ONE (17:14)
== END 2020-08-26 18:00 | disposition home or self-care (01) ==
LOC: ERS 13:12
DX: R06.02 Shortness of breath (principal); E11.9 Type 2 diabetes mellitus without complications; I10 Essential (primary) hypertension; J45.909 Unspecified asthma, uncomplicated; Z79.84 Long term (current) use of oral hypoglycemic drugs; Z79.899 Other long term (current) drug therapy
CPT/HCPCS: 36415; 71045; 71275; 80053; 81003; 81015; 83880; 84484; 85025; 85379; 93005; Q9967

== ENCOUNTER 2020-09-03 17:37 | Emergency (ER) | payer MEDICARE, MEDICAID ==
[2020-09-03 18:54] LABS: #Basophils 0.1 thou/uL (0.0-0.2); #Eosinphils 0.3 thou/uL (0.0-0.7); #Lymphocytes 3.2 thou/uL (1.20-3.40); #Monocytes 0.9 thou/uL (0.11-0.59); #Neutrophils 4.4 thou/uL (1.40-6.50); %Basophils 1.4 % (0.0-1.0); %Eosinophils 3.6 % (0.0-10.0); %Lymphocytes 35.7 % (21.0-51.0); %Monocytes 10.5 % (0.0-10.0); %Neutrophils 48.9 % (42.0-75.0); Hemoglobin 10.3 g/dL (12.0-16.0); Mean Corpuscular HGB CONC 31.5 g/dL (32.0-36.0); Mean Corpuscular Hemoglobin 33.2 pg (27.0-31.0); Mean Platelet Volume 9.2 fL (7.4-10.4); Platelet Count 237 thou/uL (130-400); RBC Distribution Width 11.3 % (11.5-14.5); Red Blood Cell (RBC) Count 3.11 mill/uL (4.20-5.40)
[2020-09-03 19:02] LABS: Bacteria/HPF None Seen HPF (None Seen); Bilirubin Negative (Negative); Blood, Urine 1+ (Negative); Clarity Clear (Clear); Glucose, Urine (Dipstick) Normal (Negative); Ketone, Urine Negative (Negative); Leukocyte Negative Leu/uL (Negative); Nitrite Negative (Negative); Protein, Urine (Dipstick) 300 mg/dL (Neg-Trace); RBC/HPF 0-3 HPF (0-3); Specific Gravity, Urine 1.017 (1.002-1.036); Squamous Epithelial 0-3 HPF (0-3); Urobilinogen Normal mg/dL (Less than 2); WBC/HPF None Seen HPF (0-3)
[2020-09-03 19:10] LABS: Hypochromia SLIGHT = 6-15 cells (100X) (0-5/hpf); MDiff Complete? YES; Macrocytosis SLIGHT = 6-15 cells (100X) (0-5/hpf); Platelet Morphology Comment Appears Adequate; Polychromasia SLIGHT = 2-3 cells (100X) (0-2/hpf)
[2020-09-03 19:17] LABS: ALT (SGPT) 12 U/L (8-55); AST (SGOT) 17 U/L (5-34); Albumin 3.5 g/dL (3.4-4.8); Alkaline Phosphatase 75 U/L (40-110); Anion Gap 9 mmol/L (10-20); BUN (Urea Nitrogen) 33 mg/dL (9.8-20.1); Bilirubin, Total 0.2 mg/dL (0.2-1.2); Calc. Creatinine Clearance 0 mL/min (70-130); Calcium 9.3 mg/dL (7.8-10.44); Carbon Dioxide 27 mmol/L (23-31); Chloride 105 mmol/L (98-107); Globulin 3.3 g/dL (2.4-3.5); Glucose 60 mg/dL (80-115); Lipase 55 U/L (8-78); Potassium 4.2 mmol/L (3.5-5.1); Protein, Total 6.8 g/dL (5.8-8.1); Sodium 137 mmol/L (136-145)
== END 2020-09-03 21:45 | disposition home or self-care (01) ==
LOC: ERS 17:37
DX: R10.13 Epigastric pain (principal); R11.2 Nausea with vomiting, unspecified; R19.7 Diarrhea, unspecified; E11.9 Type 2 diabetes mellitus without complications; D64.9 Anemia, unspecified; J45.909 Unspecified asthma, uncomplicated; I10 Essential (primary) hypertension; Z79.899 Other long term (current) drug therapy; Z79.84 Long term (current) use of oral hypoglycemic drugs
CPT/HCPCS: 36415; 36416; 74177; 80053; 81003; 81015; 82274; 83690; 84484; 85025; 93005; Q9967

== ENCOUNTER 2021-04-09 13:44 | Emergency (ER) | payer MEDICARE, MEDICAID ==
[2021-04-09] MEDS ORDERED: Famotidine 20 MG TAB ONE (14:16)
[2021-04-09] MEDS ORDERED: EPINEPHrine 1 MG/ML VIAL ONE (14:16)
[2021-04-09] MEDS ORDERED: predniSONE 20 MG TAB ONE (14:16)
[2021-04-09] MEDS ORDERED: diphenhydrAMINE 25 MG CAP ONE (14:19)
== END 2021-04-09 19:21 ==
LOC: ERS 13:44
DX: T78.09XA Anaphylactic reaction due to other food products, initial encounter (principal); E11.9 Type 2 diabetes mellitus without complications; D64.9 Anemia, unspecified; I10 Essential (primary) hypertension; J45.909 Unspecified asthma, uncomplicated; Z79.899 Other long term (current) drug therapy; Z79.84 Long term (current) use of oral hypoglycemic drugs
CPT/HCPCS: 96372; 99284; J0171; J7512

== ENCOUNTER 2023-05-29 16:06 | Emergency (ER) | payer MEDICARE, MEDICAID ==
[2023-05-29 16:49] LABS: #Eosinphils 0.5 thou/uL (0.0-0.7); #Monocytes 0.8 thou/uL (0.11-0.59); #Neutrophils 4.1 thou/uL (1.40-6.50); %Basophils 0.3 % (0.0-1.0); %Eosinophils 5.9 % (0.0-10.0); %Lymphocytes 37.4 % (21.0-51.0); %Monocytes 8.9 % (0.0-10.0); %Neutrophils 47.3 % (42.0-75.0); Hematocrit 29.9 % (36.0-47.0); Hemoglobin 9.1 g/dL (12.0-16.0); Mean Corpuscular HGB CONC 30.4 g/dL (32.0-36.0); Mean Corpuscular Hemoglobin 31.8 pg (27.0-31.0); Mean Corpuscular Volume 104.5 fl (78.0-98.0); Platelet Count 241 10x3/uL (130-400); Red Blood Cell (RBC) Count 2.86 mill/uL (4.20-5.40); White Blood Cell (WBC) Count 8.8 10x3/uL (4.8-10.8)
[2023-05-29 17:09] LABS: ALT (SGPT) 17 U/L (8-55); AST (SGOT) 22 U/L (5-34); Albumin 3.4 g/dL (3.4-4.8); Alkaline Phosphatase 70 U/L (40-110); Anion Gap 10 mmol/L (10-20); BUN (Urea Nitrogen) 18 mg/dL (9.8-20.1); Bilirubin, Total 0.3 mg/dL (0.2-1.2); Calc. Creatinine Clearance 0 mL/min (70-130); Calcium 8.6 mg/dL (7.8-10.44); Carbon Dioxide 30 mmol/L (23-31); Chloride 105 mmol/L (98-107); Estimated GFR 42; Globulin 3.8 g/dL (2.4-3.5); Glucose 217 mg/dL (83-110); Lipase 44 U/L (8-78); Potassium 4.4 mmol/L (3.5-5.1); Protein, Total 7.2 g/dL (5.8-8.1); Sodium 141 mmol/L (136-145)
[2023-05-29 17:12] LABS: Troponin I 0.021 ng/mL (< 0.028)
[2023-05-29 17:49] LABS: SARS-CoV-2 NAA Rapid Test Not Detected (NotDetected)
[2023-05-29] MEDS ORDERED: Magnesium 2 GM/50 ML BAG (IN WATER) ONE (18:00)
[2023-05-29] MEDS ORDERED: Dexamethasone 10 MG/ML VIAL ONE (18:00)
[2023-05-29] MEDS ORDERED: Ipratropium/Albuterol 3 ML NEB ONE (19:03)
[2023-05-29] MEDS ORDERED: Racepinephrine 2.25% 0.5 ML NEB ONE (19:03)
[2023-05-29] MEDS ORDERED: Albuterol 2.5 MG (0.5 mL) NEB ONE (19:03)
[2023-05-29] MEDS ORDERED: Morphine 2 MG/ML VIAL ONE (19:07)
[2023-05-29] MEDS ORDERED: ALPRAZolam 0.25 MG TAB ONE (23:53)
[2023-05-30] MEDS ORDERED: Insulin Glargine 30 UNITS/0.3 ML VIAL SC SCH (00:15)
== END 2023-05-30 00:39 | disposition home or self-care (01) ==
LOC: ERS 16:06
DX: J45.901 Unspecified asthma with (acute) exacerbation (principal); J81.1 Chronic pulmonary edema; E11.9 Type 2 diabetes mellitus without complications; I10 Essential (primary) hypertension
CPT/HCPCS: 0240U; 71045; 74176; 80053; 82962; 83690; 83880; 84484; 85025; 93005; 94640; 96365; 96375; 99285; 36415; 36416; J1100; J1815; J2272; J3475; J7611; J7620